=== PATIENT | female | born 1975 | race Caucasian/White ===

== ENCOUNTER 2016-07-01 17:10 | Emergency (ER) | payer MEDICAID ==
[~2016-07-01] VITALS: Ht 160 cm; Wt 58.0 kg
[~2016-07-01 17:10] MED LIST: BENZ100C70 PO; BUTA1CAP39 PO; POLY15DR42 BOTH EYES; PROM5SYR2 PO
[2016-07-01 17:13] VITALS: Ht 160 cm; Wt 58.0 kg
--- NOTE | 2016-07-01 18:29 | ERA ---
ER Documentation Chief Complaint Date/Time DATE: 07/01/16 TIME: 18:27 Chief Complaint neck pain , b/l hand swelling x 1 day , blood in urine today HPI 40-year-old female who complains of hematuria, dysuria, and pruritus of the distal extremities bilaterally. Symptoms have progressed over the past 2 days. Patient denies having symptoms like this before. Pt denies vaginal discharge , vaginal pruritus, foul odor, melena, weight loss, fevers, nausea, vomiting, diarrhea, constipation, hyperhidrosis, rigors, fatigue, difficulty breathing, chest pain, or change in bowl habits. Patient denies any medical conditions. Denies any new medications or change in detergents/clothing. Refuses pain medication at this time. ROS All systems reviewed and are negative except as per history of present illness. Medications Home Meds Active Scripts Benzonatate* (Tessalon Perle*) 100 Mg Capsule, 100 MG PO Q8H Y for COUGH, #20 CAP Prov:ASHER MULLEN PA-C 12/24/15 Promethazine HCl/Codeine (Prometh-Codein 6.25-10 mg/5 ml) 5 Ml Syrup, 5 ML PO QHS, #4 OZ Prov:ASHER MULLEN PA-C 12/24/15 Artificial Tears* (Artificial Tears* Ophth) 15 ml Opht, 2 DROP BOTH EYES Q3H Y for DRY EYES, #1 EA Prov:ELANA LILLY NP 10/19/15 Pmybbgmutxday-Wfyhurmjqb-Ffvxzfbx-Codeine* (Fioricet w/ Codeine*) [id number] 30MG Capsule, 1 CAP PO Q6H Y for PAIN LEVEL 1-5, #20 CAP Prov:ELANA LILLY NP 10/19/15 Allergies Allergies: Coded Allergies: No Known Allergy (Unverified , 12/23/15) PMhx/Soc Hx Alcohol Use: No Hx Substance Use: No Hx Tobacco Use: No Physical Exam Vitals Vital Signs Date Time Temp Pulse Resp B/P Pulse Ox O2 Delivery O2 Flow Rate FiO2 07/01/16 17:13 98.6 83 18 116/69 98 Physical Exam Const: Well-appearing/developed 40-year-old female who is in no acute distress. Head: Atraumatic Eyes: Normal Conjunctiva ENT: Normal External Ears, Nose and Mouth. Neck: Full range of motion..~ No meningismus. Resp: Clear to auscultation bilaterally Cardio: Regular rate and rhythm, no murmurs Abd: Soft, non tender, non distended. Normal bowel sounds Skin: No petechiae or rashes Back: No midline or flank tenderness. Mild right CVA tenderness. Ext: No cyanosis, or edema Neur: Awake and alert Psych: Normal Mood and Affect Result Diagram: 07/01/16183907/01/161839 Results 24 hrs Laboratory Tests Test 07/01/16 18:37 07/01/16 18:40 Urine Color YELLOW Urine Clarity SLIGHTLY CLOUDY Urine pH 5.0 Urine Specific [place] >=1.030 Urine Ketones NEGATIVE Urine Nitrite NEGATIVE Urine Bilirubin NEGATIVE Urine Urobilinogen 0.2 E.U./dL Urine Leukocyte Esterase NEGATIVE Urine Microscopic RBC 25-50/HPF Urine Microscopic WBC 10-25/HPF Urine Squamous Epithelial Cells MODERATE Urine Bacteria FEW Urine Hemoglobin 2+ Urine Glucose NEGATIVE% Urine Total Protein 1+ White Blood Count 6.910^3/ul Red Blood Count 4.0410^6/ul Hemoglobin 12.9g/dl Hematocrit 35.7% Mean Corpuscular Volume 88.4fl Mean Corpuscular Hemoglobin 31.9pg Mean Corpuscular Hemoglobin Concent 36.1g/dl Red Cell Distribution Width 11.3% Platelet Count 33378^3/UL Mean Platelet Volume 9.3fl Neutrophils % 67.1% Lymphocytes % 19.2% Monocytes % 8.7% Eosinophils % 3.2% Basophils % 0.4% Nucleated Red Blood Cells % 0.0/100WBC Neutrophils # 4.610^3/ul Lymphocytes # 1.310^3/ul Monocytes # 0.610^3/ul Eosinophils # 0.210^3/ul Basophils # 0.010^3/ul Nucleated Red Blood Cells # 0.010^3/ul Sodium Level 139mmol/L Potassium Level 3.7mmol/L Chloride Level 102mmol/L Carbon Dioxide Level 26mmol/L Anion Gap 15 Blood Urea Nitrogen 14mg/dl Creatinine 0.72mg/dl Glucose Level 99mg/dl Calcium Level 9.1mg/dl Total Bilirubin 0.3mg/dl Direct Bilirubin 0.00mg/dl Indirect Bilirubin 0.3mg/dl Aspartate Amino Transf (AST/SGOT) 27IU/L Alanine Aminotransferase (ALT/SGPT) 45IU/L Alkaline Phosphatase 54IU/L Total Protein 7.2g/dl Albumin 4.2g/dl Globulin 3.00g/dl Albumin/Globulin Ratio 1.40 Procedures/MDM 40-year-old well-appearing female with chief complaint of bilateral upper and lower extremity pruritus, 2) dysuria and hematuria. Symptoms have developed over the past 3 days. Patient's physical exam is unremarkable except for mild right CVA tenderness. We will go ahead and get urine to rule out infection of the tract and a liver function panel to evaluate for possible cause of pruritus. There is no rash on examination and no lichenification or evidence of chronic scratching. The patient appears mentally stable and psych disorder is of low suspicion at this time. Urine was negative. Patient's chemistry was unremarkable. Patient's urine was positive for squamous epithelial cells and 5.0 pH and 10-20 white blood cells. We will go ahead and treat the patient for hemorrhagic cystitis. Patient is stable at this time is good for discharge. Will give return precautions. Have advised patient to follow-up with primary care provider in 1-3 days for evaluation of distal extremity pruritus. At this time I have very low suspicion for pyelonephritis. Departure Diagnosis: Primary Impression: Generalized pruritus Additional Impressions: Hemorrhagic cystitis Acute hemorrhagic cystitis Condition: Stable Additional Instructions: Follow up with your PCP within the next 1-3 days for a more thorough evaluation and a possible referral to a specialist. Return the the emergency department immediately if symptoms worsen or change. If you have any questions regarding medications, ask your pharmacist or us before you leave. If any adverse reactions occur while taking your medications, discontinue the treatment and return to the emergency department immediately. Take your medications as directed, and complete the entire course of treatment. MAURILIO PALMA PA-C Jul 01, 2016 18:29
[2016-07-01 18:48] LABS: ADD SCAN DIFF NO
[2016-07-01 18:51] LABS: BASOPHILS % 0.4 % (0.0-2.0); EOSINOPHILS # 0.2 10^3/ul (0.0-0.5); EOSINOPHILS % 3.2 % (0.0-7.0); HEMATOCRIT 35.7 % (37.0-47.0); HEMOGLOBIN 12.9 g/dl (12.0-16.0); LYMPHOCYTES # 1.3 10^3/ul (0.8-2.9); LYMPHOCYTES % 19.2 % (15.0-51.0); MEAN CORPUSCULAR HEMOGLOBIN 31.9 pg (29.0-33.0); MEAN CORPUSCULAR HGB CONC 36.1 g/dl (32.0-37.0); MEAN CORPUSCULAR VOLUME 88.4 fl (82.0-101.0); MEAN PLATELET VOLUME 9.3 fl (7.4-10.4); MONOCYTE # 0.6 10^3/ul (0.3-0.9); MONOCYTES % 8.7 % (0.0-11.0); NEUTROPHIL # 4.6 10^3/ul (1.6-7.5); NEUTROPHILS % 67.1 % (39.0-77.0); PLATELET COUNT 157 10^3/UL (140-415); RED BLOOD COUNT 4.04 10^6/ul (4.20-5.40); RED CELL DISTRIBUTION WIDTH 11.3 % (11.5-14.5); WHITE BLOOD COUNT 6.9 10^3/ul (4.8-10.8)
[2016-07-01 19:03] LABS: ADD UMIC YES; URINE BILIRUBIN (Dip) NEGATIVE (NEGATIVE); URINE BLOOD (Dip) 2+ (NEGATIVE); URINE GLUCOSE (Dip) NEGATIVE (NEGATIVE); URINE KETONES (Dip) NEGATIVE (NEGATIVE); URINE LEUKOCYTE ESTERASE (Dip) NEGATIVE (NEGATIVE); URINE NITRITE (Dip) NEGATIVE (NEGATIVE); URINE TOTAL PROTEIN (Dip) 1+ (NEGATIVE); URINE UROBILINOGEN (Dip) 0.2 E.U./dL (0.1-1.0)
[2016-07-01 19:08] LABS: ALBUMIN 4.2 g/dl (3.3-4.9)
[2016-07-01 19:09] LABS: POTASSIUM 3.7 mmol/L (3.5-5.1)
[2016-07-01 19:11] LABS: ALBUMIN/GLOBULIN RATIO 1.4; BILIRUBIN,INDIRECT 0.3 mg/dl (0-1.1); BILIRUBIN,TOTAL 0.3 mg/dl (0.2-1.3); CREATININE 0.72 mg/dl (0.44-1.00); TOTAL PROTEIN 7.2 g/dl (6.1-8.1)
[2016-07-01 19:12] LABS: CALCIUM 9.1 mg/dl (8.4-10.2)
[2016-07-01 19:13] LABS: URINE COLOR YELLOW (YELLOW)
[2016-07-01 19:16] LABS: BACTERIA,URINE FEW; SQUAMOUS EPITHELIAL CELL,UR MODERATE; URINE RBCS 25-50 /HPF (0)
[2016-07-01] MEDS ORDERED: CIPR500T4 PO (19:32)
[2016-07-01] MEDS ORDERED: PHEN-537 PO (19:32)
== END 2016-07-01 19:49 | disposition home or self-care (01) ==
LOC: FTE 17:10
DX: L29.9 Pruritus, unspecified (principal); N30.00 Acute cystitis without hematuria
CPT/HCPCS: 80053; 80076; 81001; 85025; Z7502; 81003; 99283